=== PATIENT | female | born 1955 | race Caucasian/White ===

== ENCOUNTER → 2017-01-12 | Outpatient (CLI) | payer OTHER ==
[~2017-01-12] MED LIST: CLX20 PO; METO25TA56 PO; SIMV20TA2 PO
--- NOTE | 2017-01-12 11:50 | DIAGNOSTIC IMAGING REPORT ---
LEFT RIBS UNILATERAL WITH PA CHEST CLINICAL HISTORY: CONTUSION OF CHEST WALL, RIB PAIN L trauma. Pain. COMPARISON STUDY: None FINDINGS: Negative left ribs. Negative chest. IMPRESSION: Negative study Electronically signed by: Yuri Schwartz M.D. 01/12/2017 11:49 AM Dictated Date/Time: 01/12/2017 11:47 AM
== END | disposition home or self-care (01) ==
LOC: C.RADPV 11:19
PROVIDERS: ATTEND Nurse Practitioner
DX: S20.219A Contusion of unspecified front wall of thorax, initial encounter (principal); R07.81 Pleurodynia; X58.XXXA Exposure to other specified factors, initial encounter

== ENCOUNTER → 2017-02-20 | Outpatient (CLI) | payer OTHER | END | disposition home or self-care (01) | LOC: C.LABPVFM 10:25 | PROVIDERS: ATTEND Nurse Practitioner | DX: N39.0 Urinary tract infection, site not specified (principal) ==

== ENCOUNTER → 2017-03-10 | Outpatient (CLI) | payer OTHER ==
--- NOTE | 2017-03-10 10:22 | DIAGNOSTIC IMAGING REPORT ---
CHEST 2 VIEWS ROUTINE HISTORY: BLOOD TINGED SPUTUM COMPARISON: Chest and left rib series 01/12/2017. FINDINGS: The lungs are clear. Cardiac silhouette is normal in size. No pleural effusions. No pneumothorax. IMPRESSION: No acute process. Electronically signed by: Nitin Bain M.D. 03/10/2017 10:20 AM Dictated Date/Time: 03/10/2017 10:19 AM
== END | disposition home or self-care (01) ==
LOC: C.RADPV 10:01
PROVIDERS: ATTEND Family Medicine
DX: R04.2 Hemoptysis (principal)

== ENCOUNTER → 2017-03-11 | Outpatient (CLI) | payer OTHER | END | disposition home or self-care (01) | LOC: C.LABPVFM 08:30 | PROVIDERS: ATTEND Family Medicine | DX: R04.2 Hemoptysis (principal) ==

== ENCOUNTER → 2017-08-06 | Outpatient (CLI) | payer OTHER ==
--- NOTE | 2017-08-06 09:32 | DIAGNOSTIC IMAGING REPORT ---
L KNEE 3 VIEWS CLINICAL HISTORY: LEFT KNEE PAIN pain COMPARISON: None. DISCUSSION: Degenerative narrowing medial and to lesser extent lateral joint compartment. Patellofemoral joint is unremarkable. No significant joint effusion. No acute bony abnormality. There is no evidence for soft tissue swelling. IMPRESSION: Moderate degenerative change medial and to a letter lesser extent lateral joint compartment. The above report was generated using voice recognition software. It may contain grammatical, syntax or spelling errors. Electronically signed by: Yuri Schwartz M.D. 08/06/2017 9:30 AM Dictated Date/Time: 08/06/2017 9:30 AM
== END | disposition home or self-care (01) ==
LOC: C.RADPV 08:36
PROVIDERS: ATTEND Nurse Practitioner Family
DX: M25.562 Pain in left knee (principal); M89.8X6 Other specified disorders of bone, lower leg

== ENCOUNTER 2018-03-10 15:02 | Emergency (ER) | payer OTHER ==
[~2018-03-10] VITALS: Ht 162.6 cm; Wt 73.6 kg
[2018-03-10 15:06] VITALS: TEMP 37; Ht 162.6 cm; Wt 73.6 kg
--- NOTE | 2018-03-10 16:07 | DIAGNOSTIC IMAGING REPORT ---
L-SPINE MIN 4 VIEWS ROUTINE CLINICAL HISTORY: Low back pain COMPARISON: None FINDINGS: Alignment of the lumbar spine is anatomic. Vertebral body heights are maintained. No fracture or suspicious lesion is noted. There is marked disc space narrowing with osteophytosis at L5-S1. There is vacuum disc phenomenon at this level. There is moderate disc space narrowing at T10-T11. Note is made of mild to moderate multilevel facet arthrosis. IMPRESSION: 1. No acute lumbar spine fracture or subluxation. 2. Marked disc space narrowing with osteophytosis at L5-S1. 3. Mild to moderate multilevel facet arthrosis. Electronically signed by: Parviz Guzmán M.D. 03/10/2018 4:06 PM Dictated Date/Time: 03/10/2018 4:04 PM
--- NOTE | 2018-03-10 16:10 | EMERGENCY ROOM VISIT NOTE ---
History First contact with patient: 15:17 Chief Complaint: BACK PAIN Stated Complaint: PAIN IN LOWER BACK History of Present Illness The patient is a 62 year old female who presents to the Emergency Room via private vehicle with complaints of "pain in lower back". The patient states that she has low back pain that radiates to her left leg with walking that began last week. It is worse with movement. This morning while making her bed she was bending over and felt pain in the left low back region. She rates as an 8/10 and is worse with walking. At rest it is a 1/10. She took Tylenol at 8 AM. No abdominal complaints, no urinary symptoms, no lower extremity weakness , bowel or bladder incontinence, numbness or tingling in the genital region. No chest pain or shortness of breath. Review of Systems A complete 10-point Review of Systems was discussed with the patient, with pertinent positives and negatives listed in the History of Present Illness. All remaining Review of Systems questions can be considered negative unless otherwise specified. Past Medical/Surgical History Hemorrhoid banding Family History Noncontributory. Social History Smoking Status: Never Smoker Patient lives locally alone. Current/Historical Medications Scheduled Citalopram (Celexa *), 20 MG PO DAILY Methylprednisolone (Medrol Dosepak), 0 PO DAILY Metoprolol Tartrate (Lopressor) (Lopressor), 25 MG PO DAILY Simvastatin (Zocor), 40 MG PO QPM Scheduled PRN Hydrocodone/Acetaminophen 5MG/325MG (Rosebush 5MG/325MG), 1-2 TABLET PO Q6 PRN for Pain Physical Exam Vital Signs Date Time Temp Pulse Resp B/P (MAP) Pulse Ox O2 Delivery O2 Flow Rate FiO2 03/10/18 15:06 37.0 100 16 173/80 98 Room Air Physical Exam VITAL SIGNS - Vital signs and nursing notes were reviewed. Stable. Hypertensive. GENERAL -62-year-old female appearing her stated age who is in no acute distress. Communicates well with provider and answers questions appropriately. SKIN - Without rashes. No meningeal or petechial rash. The skin overlying the left low back is unremarkable. No herpetic lesion. HEAD - NC/AT. EYES - PERRL with EOMI bilaterally. Sclera anicteric. EARS - No deformities of external structures noted on gross examination bilaterally. NOSE - Midline and without cyanosis. No epistaxis or purulent drainage noted. MOUTH/OROPHARYNX - Without perioral cyanosis. NECK - Neck with FROM.No nuchal rigidity. LUNGS - Chest wall symmetric without accessory muscle use, intercostals retractions, or central cyanosis. Normal vesicular breath sounds CTA B/L. No wheezes, rales, or rhonchi appreciated. CARDIAC - RRR with S1/S2. No murmur, rubs, or gallops appreciated. ABDOMEN - Abdominal contour normal without pulsations or visible masses. BS normoactive all four quadrants. No tenderness, palpable masses, hepatosplenomegaly, or ascites noted. EXTREMITIES - No clubbing or peripheral cyanosis. No pretibial edema present. + 5/5 strength noted in UE/LE bilaterally. NEUROLOGIC - Cranial nerves II through XII grossly intact. Sensory intact to light touch throughout. Patellar reflexes +2/4. PSYCH - A&O, and cooperates fully with examiner. Pt is very pleasant and interacts well with examiner. Medical Decision & Procedures ER Provider Diagnostic Interpretation: L-SPINE MIN 4 VIEWS ROUTINE CLINICAL HISTORY: Low back pain COMPARISON: None FINDINGS: Alignment of the lumbar spine is anatomic. Vertebral body heights are maintained. No fracture or suspicious lesion is noted. There is marked disc space narrowing with osteophytosis at L5-S1. There is vacuum disc phenomenon at this level. There is moderate disc space narrowing at T10-T11. Note is made of mild to moderate multilevel facet arthrosis. IMPRESSION: 1. No acute lumbar spine fracture or subluxation. 2. Marked disc space narrowing with osteophytosis at L5-S1. 3. Mild to moderate multilevel facet arthrosis. Electronically signed by: Parviz Guzmán M.D. 03/10/2018 4:06 PM Dictated Date/Time: 03/10/2018 4:04 PM Medical Decision Patient was seen and evaluated as above in room D5. Review was performed of nursing notes and vital signs. After obtaining a thorough history and physical examination the above work up was performed. She has low back pain. No evidence of cauda equina syndrome, fever or emergent process identified on exam. X-ray was obtained. Results as above. Degenerative change. This certainly could explain some of her symptoms today. She appears stable for outpatient management with her family doctor. She will be given a course of steroids, and pain medicine. I refrain from using Flexeril because of her underlying SSRIs. She is to return with worsening. She was educated upon worrisome symptoms which to return. She is to rest. The patient was educated upon management, had questions answered prior to discharge, and was discharged home in good condition. No red flags in the [place] drug monitoring system. In the evaluation and treatment of this patient the following differential diagnoses were entertained: Lumbar strain, sprain, fracture, dislocation, malignancy, urinary etiology, intra-abdominal etiology, among others. Impression Primary Impression: Strain of lumbar region Departure Information Dispostion Home / Self-Care Condition GOOD Prescriptions Hydrocodone/Acetaminophen 5MG/325MG (Rosebush 5MG/325MG) Tab 1-2 TABLET PO Q6 Y for Pain, #15 TAB For Initial Treatment Prov: Javier Rivas PA-C 03/10/18 Methylprednisolone (MEDROL DOSEPAK) 4 Mg Toney 0 PO DAILY, #1 PKT Prov: Javier Rivas PA-C 03/10/18 Referrals Nati Tapia C.R.N.P (PCP) Sal Ramos, DO Patient Instructions [facility] Additional Instructions You have been treated in the Emergency Department for Back Pain. You have been prescribed NORCO to be used for pain control. This is a narcotic medication. You cannot drive or consume alcohol while on this medicine. This medicine should only be used for pain that cannot be controlled with over-the- counter pain medicines. You have been prescribed a Medrol Dosepak. Take this medication as prescribed. You should take the COMPLETE 6-day course of this medication. This is an anti- inflammatory medicine that will help to minimize your symptoms. For pain control, you can use the following [id number] medicines: - Regular strength (325mg/tab) Tylenol (acetaminophen) 2 tabs every 4-6 hours as needed. Do not exceed 12 tablets in a 24 hour period. Avoid taking more than 3 grams (3000 mg) of Tylenol per day. This includes any other sources of acetaminophen you may take on a regular basis. - Regular strength (200 mg/tab) Advil (ibuprofen) 1-2 tabs every 4-6 hours as needed. Do not exceed a dose of 3200 mg per day. If this is an acute injury, ice can be applied to the area of pain for the first 3 days to help decrease pain and inflammation. After the first 3 days, a heating pad can be used over the area for continued soothing relief. You should schedule a follow-up appointment in 2-3 days with your Primary Care Provider for further evaluation and treatment of your back pain. Return to the Emergency Department if your current symptoms worsen despite treatment course outlined above, or if you develop any of the following symptoms : intractable pain despite aforementioned treatment course, loss of control of your bowel or bladder, numbness or tingling in your groin, or development of a fever.
[2018-03-10] MEDS ORDERED: HYDR-5688 PO (16:41)
[2018-03-10] MEDS ORDERED: METH4PAK PO (16:41)
[2018-03-10 16:48] VITALS: BP 168/57; PULSE 92; O2SAT 95
== END 2018-03-10 16:49 | disposition home or self-care (01) ==
LOC: C.EDB 15:03 → C.EDD 16:49
DX: S39.012A Strain of muscle, fascia and tendon of lower back, initial encounter (principal); X58.XXXA Exposure to other specified factors, initial encounter; M85.88 Other specified disorders of bone density and structure, other site; Z79.899 Other long term (current) drug therapy

== ENCOUNTER → 2018-03-18 | Outpatient (CLI) | payer OTHER ==
[~2018-03-18] MED LIST changes: +HYDR-5688 PO; +METH4PAK PO
== END | disposition home or self-care (01) ==
LOC: C.LABPVFM 10:21
PROVIDERS: ATTEND Nurse Practitioner
DX: E78.5 Hyperlipidemia, unspecified (principal)

== ENCOUNTER 2020-03-28 17:37 | Inpatient (IN) ==
[2020-03-28] MEDS ORDERED: SODIUM CHLORIDE 0.9% 500 ML IV STA (18:03)
[2020-03-28] MEDS ORDERED: ONDANSETRON INJ 2 MG/ML 2 ML VIAL IV STA (18:03)
[2020-03-28] MEDS ORDERED: MoRPHine SULFATE 4 MG/ML 1 ML CARP\\VIAL IV STA (18:03)
[2020-03-28] MEDS ORDERED: SODIUM CHLORIDE 0.9% 1000ML 1,000 ML IV STA (18:03)
--- NOTE | 2020-03-28 18:09 | Emergency Department Note ---
History of Present Illness General Chief complaint: Abdominal Pain Stated complaint: SEVERE LOWER STOMACH PAIN Time Seen by Provider: 03/28/20 17:45 History of Present Illness Maximum Pain Intensity: 8 Patient is a 64-year-old female with past medical history significant for dyslipidemia, depression and a history of hypertension who presents the emergency department for evaluation of lower abdominal pain, nausea, diarrhea and bloating x6 days. Patient has a history of diverticulosis diagnosed on colonoscopy. She reports that she was told by her electronic video games servicer to not eat corn. Patient admits that last , 6 days ago she ate a can of corn. Afterwards, she developed lower abdominal discomfort, bloating and a sense that she was constipated. She tried wqnm-wkh-sczlwqa remedies including fiber Gummies, prune juice, MiraLAX and milk of magnesia, she felt better for a short period of time through yesterday, but then her symptoms worsened overnight. She notes increased discomfort that she currently rates an 8/10. She reports bilateral lower abdominal discomfort that is constant and achy in nature. She reports nausea and anorexia without vomiting. She states that she had felt constipated and was having small bowel movements until yesterday when the schools became liquid. No melena or hematochezia. She denies fever, admits to fatigue. She admits to decreased urinary output but denies any urinary symptoms. She states that she feels like she would feel better if she could pass gas. No history of abdominal surgeries. She is postmenopausal. Home Medications Home Medications Medication Instructions Recorded Confirmed Type venlafaxine 75 mg tablet 75 mg PO BID #180 tab 11/04/19 03/28/20 Rx polyethylene glycol 3350 17 g PO DAILY PRN 03/28/20 03/28/20 History simvastatin 40 mg PO QPM 03/28/20 03/28/20 History Allergies Allergy/AdvReac Type Severity Reaction Status Date / Time No Known Allergies Allergy Verified 03/28/20 20:22 Past Med/Surg History Medical History Depression with anxiety (Chronic) Recommend patient receive the Prevnar vaccine today. She will receive the pneumococcal vaccine in 1 year. Discussed the tetanus shot and also the updated shingles vaccine. She will schedule her own mammogram. She will return for pelvic exam. And I will see her in 8 months, she is to continue with her medications for chronic conditions which are otherwise stable at this time Diverticulosis of colon (Chronic) Hx of hemorrhoids Hyperlipidemia Hyperlipidemia (Chronic) Hypertension (Chronic) Insomnia (Chronic) No acute medical problems Surgical History History of hemorrhoidectomy Social History marital status: Single current occupational status: retired Feels Safe at Home: Yes Smoking Status: Never smoker Hx Alcohol Use: No Hx Substance Use: No caffeine: Yes Dental Care, Regularly: Yes Physical Activity Frequency: Daily Seatbelt Use: sometimes Sunscreen Use: Yes Review of Systems A total of 10 systems reviewed and were otherwise negative Physical Exam Vital Signs Vital Signs - 24 hr 03/28/20 17:38 03/28/20 20:10 03/28/20 20:50 Temperature 36.8 C Temperature Source Oral Pulse Rate 116 H Pulse Rate [Apical] 90 85 Respiratory Rate 19 18 18 Blood Pressure 200/73 H Blood Pressure [Left Arm] 205/77 H 158/67 H Blood Pressure Mean 115 Blood Pressure Mean [Left Arm] 119 97 Pulse Oximetry 92 99 98 Oxygen Delivery Method Room Air Room Air Sepsis Recent Fever Within 48 Hours No Sepsis Action Taken by Nursing No Action Required 03/28/20 21:16 Temperature Temperature Source Pulse Rate Pulse Rate [Apical] 80 Respiratory Rate 18 Blood Pressure Blood Pressure [Left Arm] 125/90 Blood Pressure Mean Blood Pressure Mean [Left Arm] 101 Pulse Oximetry 98 Oxygen Delivery Method Sepsis Recent Fever Within 48 Hours Sepsis Action Taken by Nursing CONSTITUTIONAL: Patient is an uncomfortable although nontoxic appearing 64-year-old female who is awake and alert and in no acute distress. EYES: Pupils equal, round, reactive to light and accommodation. EOMs intact without nystagmus. Sclera are anicteric. ENT: Tympanic membranes intact, with normal landmarks. External canals are clear. Oral and nasopharynx are clear. Mucous membranes are moist, no lesions, tongue and gums appear normal. CARDIOVASCULAR: Regular rate and rhythm, with normal S1 and S2, no murmur or gallop or rub is heard. No carotid bruits auscultated. No JVD. Peripheral pulses easily palpable. RESPIRATORY: Breath sounds equal and clear to auscultation without wheezes, rales, or rhonchi heard. Full and equal chest expansion without accessory muscle use or retractions. ABDOMEN: Bowel sounds are hypoactive throughout. Abdomen is soft, mildly distended in the lower quadrants, and tender to percussion in the left lower quadrant. She is tender to palpation in the left and right lower quadrants without guarding, rebound or rigidity. INTEGUMENTARY: No lesions or rash, normal skin turgor. LYMPH: No lymphadenopathy. Course Course The patient was seen and assessed as above. Old records are reviewed. She presents to the emergency department for evaluation of lower abdominal discomfort, bloating and diarrhea with a known history of diverticulosis. IV lock was initiated and laboratory studies were collected. She was hydrated with a liter bolus of normal saline solution over 1 hour then 250 cc/h. She was med icated with morphine 4 mg and Zofran 4 mg IV for pain and nausea. CBC with differential, CMP and urinalysis were ordered. CT scan of the abdomen and pelvis with IV contrast was obtained. Laboratory studies noted a normal white count at 10,600, left shift and bandemia noted. No anemia. Electrolytes are within normal limits. Renal functions are normal. Transaminases are not elevated. Urine microscopy notes 2+ ketones, 2+ blood and 10-20 epithelial cells, no other indicators for infection. Patient was reassessed after pain and nausea medication, and reported that she felt improved, she rated her discomfort a 2/10. She was taken to CT. CT scan of the abdomen pelvis with IV contrast notes acute sigmoid diverticulitis with an equivocal intramural abscess, no drainable fluid collection, with a second focus of acute diverticulitis involving the mid descending colon. No evidence for obstruction or free air. CT scan findings were reviewed with the patient. She was ordered Zosyn IV. All laboratory and diagnostic imaging studies were reviewed with her, and discussed with attending physician. Given the severity of the findings on CT scan, admission/observation was discussed with her and she was agreeable. Consultation was placed with the [facility] for further care and management as an inpatient. Administered Medications Ioversol (Optiray 320 100ml) 94 ml IV ONCE PRN PRN Reason: Interaction Checking Stop: 04/01/20 19:13 Last Admin: 03/28/20 19:14 Dose: 94 ml Documented by: [id number] Discontinued Medications Sodium Chloride (Nss 1000ml) 1,000 mls @ 999 mls/hr IV .Q1H1M STA Stop: 03/28/20 19:03 Last Infusion: 03/28/20 20:12 Dose: 0 mls/hr Documented by: [id number] Admin: 03/28/20 18:19 Dose: 999 mls/hr Documented by: [id number] Sodium Chloride (Nss) 500 mls @ 250 mls/hr IV .Q2H STA Stop: 03/28/20 20:02 Last Infusion: 03/28/20 20:12 Dose: 0 mls/hr Documented by: [id number] Admin: 03/28/20 18:20 Dose: 250 mls/hr Documented by: [id number] Piperacillin Sod/Tazobactam Sod (Zosyn) 4.5 gm in 120 mls @ 240 mls/hr IV NOW ONE Stop: 03/28/20 20:23 Last Infusion: 03/28/20 21:02 Dose: 0 mls/hr Documented by: [id number] Admin: 03/28/20 20:09 Dose: 240 mls/hr Documented by: [id number] Morphine Sulfate (Morphine Sulfate) 4 mg IV NOW STA Stop: 03/28/20 18:04 Last Admin: 03/28/20 18:20 Dose: 4 mg Documented by: [id number] Ondansetron HCl (Zofran) 4 mg IV NOW STA Stop: 03/28/20 18:04 Last Admin: 03/28/20 18:20 Dose: 4 mg Documented by: [id number] Medical Decision Making Differential Diagnosis Differential diagnoses entertained included UTI, pyelonephritis, renal colic, bowel obstruction, perforation, abscess, acute diverticulitis, mass or malignancy, acute appendicitis, infectious versus inflammatory colitis/enteritis, foodborne illness, among others. Medical Records Attestation: I reviewed the patient's medical records. Home Medications Current Medication List: was personally reviewed by me Laboratory Data Attestation: I reviewed the patient's lab results. Result diagrams: 03/28/20 18:28 03/28/20 18:28 Lab Results 03/28/20 03/28/20 03/28/20 Range/Units 18:28 18:28 18:28 WBC 10.65 (4.8-10.8) K/uL RBC 4.67 (4.2-5.4) M/uL Hgb 13.6 (12.0-16.0) g/dL Hct 40.9 (37-47) % MCV 87.6 (80-100) fL MCH 29.1 (25-34) pg MCHC 33.3 (32-36) g/dL RDW Std Deviation 41.7 (36.4-46.3) fL RDW Coeff of Vishnu 13.0 (11.5-14.5) % Plt Count 325 (130-400) K/uL MPV 10.3 (7.4-10.4) fL Immature Gran % (Auto) 0.3 % Neut % (Auto) 75.7 % Lymph % (Auto) 17.0 % Clayton % (Auto) 6.7 % Eos % (Auto) 0.1 % Baso % (Auto) 0.2 % Immature Gran # (Auto) 0.03 H (0.00-0.02) K/uL Neut # (Auto) 8.07 H (1.4-6.5) K/uL Lymph # (Auto) 1.81 (1.2-3.4) K/uL Clayton # (Auto) 0.71 H (0.11-0.59) K/uL Eos # (Auto) 0.01 (0-0.5) K/uL Baso # (Auto) 0.02 (0-0.2) K/uL Sodium 138 (136-145) mmol/L Potassium 3.7 (3.5-5.1) mmol/L Chloride 104 (98-107) mmol/L Carbon Dioxide 26 (21-32) mmol/L Anion Gap 8.0 (3-11) BUN 9 (7-18) mg/dl Creatinine 0.77 (0.6-1.2) mg/dl Est Cr Clr Drug Dosing 69.9 ml/min Est GFR ( Amer) 93.9 Est GFR (Non-Af Amer) 81.0 BUN/Creatinine Ratio 12.2 (10-20) Glucose 109 H (70-99) mg/dl Calcium 9.2 (8.5-10.1) mg/dl Total Bilirubin 0.8 (0.2-1) mg/dl AST 15 (15-37) U/L ALT 21 (12-78) U/L Alkaline Phosphatase 97 (45-117) U/L Total Protein 8.0 (6.4-8.2) gm/dl Albumin 3.6 (3.4-5.0) gm/dl Globulin 4.4 H (2.5-4.0) gm/dl Albumin/Globulin Ratio 0.8 L (0.9-2) Urine Color Yellow Urine Appearance Clear (Clear) Urine pH 5.5 (4.5-7.5) Ur Specific Dania 1.027 (1.000-1.030) Urine Protein Negative (Negative) Urine Glucose (UA) Negative (Negative) Urine Ketones 2+ H (Negative) Urine Blood 2+ H (Negative) Urine Nitrite Negative (Negative) Urine Bilirubin Negative (Negative) Urine Urobilinogen Negative (Negative) Ur Leukocyte Esterase Negative (Negative) Urine WBC (Auto) 1-5 (0-5) /hpf Urine RBC (Auto) 5-10 H (0-4) /hpf U Hyaline Cast (Auto) 1-5 (0-5) /lpf U Epithel Cells (Auto) 10-20 H (0-5) /lpf Urine Bacteria (Auto) Negative (Negative) Imaging Data Attestation: I personally reviewed and interpreted this imaging study as follows: Radiologist's Impression: CT abd pelvis IV con only CLINICAL HISTORY: LOWER ABD PAIN, BLOATING,DIARRHEA X 6 DAYS COMPARISON STUDY: January 06, 2019 TECHNIQUE: The patient was scanned in a dynamic helical fashion during intravenous administration of 94 cc of Optiray 320 A dose lowering technique was utilized adhering to the principles of ALARA. CT DOSE: 393.80 mGy.cm FINDINGS: Lower chest: There is a small to moderate hiatal hernia. Liver: The contrast-enhanced liver is normal in size, contour, and attenuation. There is no intrahepatic biliary ductal dilatation. The hepatic veins and portal veins are patent. Gallbladder: Unremarkable. Spleen: Normal in size and attenuation. Pancreas: Unremarkable. Adrenal glands: Unremarkable. Kidneys: There is a 1 cm left renal cortical cyst. There is no hydronephrosis. Bowel: There are no transition zones to indicate bowel obstruction. There is extensive colonic diverticulosis. There is colonic wall thickening and peridiverticular stranding within the sigmoid indicative of acute diverticulitis. There is a second area of peridiverticular inflammation involving the mid descending colon. There is an equivocal intramural abscess w ithin the sigmoid colon. There is no evidence of acute appendicitis. Peritoneum: There is no intraperitoneal free air or abdominal ascites. Vasculature: The abdominal aorta is normal in course and caliber. Adenopathy: None. Pelvic viscera: The bladder, and pelvic viscera are unremarkable. Skeletal structures: No destructive osseous lesions are seen. IMPRESSION: 1. Acute sigmoid diverticulitis with an equivocal intramural abscess. There are no drainable fluid collections. 2. There is an additional focus of acute diverticulitis involving the mid descending colon. 3. No evidence of bowel obstruction. No evidence of free air 4. Hiatal hernia Blood Pressure Blood Pressure Findings: Elevated blood pressure Blood Pressure Disposition: further management by hospitalist MDM Narrative See ED Course. Impression & Plan Acute diverticulitis Discharge Plan Visit Data Chief Complaint: Abdominal Pain Stated Complaint: SEVERE LOWER STOMACH PAIN ED Provider: Walt Pettit ED Midlevel Provider: Viraj Paez Discharge Problem: Acute diverticulitis Patient Disposition: Being Evaluated by Hospitalist Forms Stand Alone Forms: [facility] [employer] Prescriptions Prescriptions: No Action venlafaxine 75 mg tablet 75 mg PO BID Qty: 180 RF: 3 simvastatin 40 mg tablet 40 mg PO QPM RF: 0 polyethylene glycol 3350 17 gram/dose Powder 17 g PO DAILY PRN (Reason: Constipation) RF: 0 Referrals Referrals: Nati Tapia CRNP [Primary Care Provider] -
[2020-03-28 18:35] LABS: Basophils # (auto) 0.02 K/uL (0-0.2); Basophils % (auto) 0.2 %; Eosinophils # (auto) 0.01 K/uL (0-0.5); Eosinophils % (auto) 0.1 %; Hematocrit (blood only) 40.9 % (37-47); Hemoglobin 13.6 g/dL (12.0-16.0); Immature Granulocytes # (auto) 0.03 K/uL (0.00-0.02); Immature Granulocytes % (auto) 0.3 %; Lymphocytes # (auto) 1.81 K/uL (1.2-3.4); Mean Corpuscular Hemoglobin 29.1 pg (25-34); Mean Corpuscular Hgb Conc 33.3 g/dL (32-36); Mean Corpuscular Volume 87.6 fL (80-100); Mean Platelet Volume 10.3 fL (7.4-10.4); Monocytes # (auto) 0.71 K/uL (0.11-0.59); Monocytes % (auto) 6.7 %; Neutrophils # (auto) 8.07 K/uL (1.4-6.5); Neutrophils % (auto) 75.7 %; Platelet Count 325 K/uL (130-400); RDW Standard Deviation 41.7 fL (36.4-46.3); Red Blood Count 4.67 M/uL (4.2-5.4); White Blood Count 10.65 K/uL (4.8-10.8)
[2020-03-28 18:40] LABS: Appearance Urine Clear (Clear); Bacteria Urine Automated Negative (Negative); Bilirubin Urine Negative (Negative); Blood Urine 2+ (Negative); Color Urine Yellow; Glucose Urine UA Negative (Negative); Ketones Urine 2+ (Negative); Leukocyte Esterase Urine Negative (Negative); Nitrite Urine Negative (Negative); Protein Urine Negative (Negative); Specific Gravity Urine 1.027 (1.000-1.030); Urobilinogen Urine Negative (Negative); pH Urine 5.5 (4.5-7.5)
[2020-03-28 18:53] LABS: Albumin Level 3.6 gm/dl (3.4-5.0); BUN Creatinine Ratio 12.2 (10-20); Calcium 9.2 mg/dl (8.5-10.1); Creatinine Clr Calc Pharmacy 69.9 ml/min; Est GFR (African American) 93.9; Potassium 3.7 mmol/L (3.5-5.1)
[2020-03-28 18:56] LABS: Albumin Globulin Ratio 0.8 (0.9-2); Bilirubin,Total 0.8 mg/dl (0.2-1); Globulin 4.4 gm/dl (2.5-4.0)
[2020-03-28] MEDS ORDERED: IOVERSOL 100ml IV PRN (19:14)
--- NOTE | 2020-03-28 19:30 | CT Scan Report ---
CT abd pelvis IV con only CLINICAL HISTORY: LOWER ABD PAIN, BLOATING,DIARRHEA X 6 DAYS COMPARISON STUDY: January 06, 2019 TECHNIQUE: The patient was scanned in a dynamic helical fashion during intravenous administration of 94 cc of Optiray 320 A dose lowering technique was utilized adhering to the principles of ALARA. CT DOSE: 393.80 mGy.cm FINDINGS: Lower chest: There is a small to moderate hiatal hernia. Liver: The contrast-enhanced liver is normal in size, contour, and attenuation. There is no intrahepa tic biliary ductal dilatation. The hepatic veins and portal veins are patent. Gallbladder: Unremarkable. Spleen: Normal in size and attenuation. Pancreas: Unremarkable. Adrenal glands: Unremarkable. Kidneys: There is a 1 cm left renal cortical cyst. There is no hydronephrosis. Bowel: There are no transition zones to indicate bowel obstruction. There is extensive colonic divert iculosis. There is colonic wall thickening and peridiverticular stranding within the sigmoid indicati ve of acute diverticulitis. There is a second area of peridiverticular inflammation involving the mid descending colon. There is an equivocal intramural abscess within the sigmoid colon. There is no olga dence of acute appendicitis. Peritoneum: There is no intraperitoneal free air or abdominal ascites. Vasculature: The abdominal aorta is normal in course and caliber. Adenopathy: None. Pelvic viscera: The bladder, and pelvic viscera are unremarkable. Skeletal structures: No destructive osseous lesions are seen. IMPRESSION: 1. Acute sigmoid diverticulitis with an equivocal intramural abscess. There are no drainable fluid co llections. 2. There is an additional focus of acute diverticulitis involving the mid descending colon. 3. No evidence of bowel obstruction. No evidence of free air 4. Hiatal hernia ACT 112: Negative or not required by law. Electronically signed by: Evelio Glynn M.D. 03/28/2020 7:29 PM
[2020-03-28] MEDS ORDERED: PIPERACILL/TAZOBAC CONSULT ACTIVE PRN (19:54)
[2020-03-28] MEDS ORDERED: PIPERACILLIN/TAZOBACTAM 4.5 GM/120 ML BAG IV ONE (19:54)
--- NOTE | 2020-03-28 20:17 | Emergency Department Note ---
ED Visit Note Patient was seen by our PA/[employer]. I was involved in the patient's care and did evaluate the patient myself. I was involved in the care throughout the ER stay. Patient presents with abdominal pain. Her laboratory work-up is reassuring. CT scan does show diverticulitis with a potential intramural abscess. No drainable collection was seen though. No bowel obstruction. Given the findings on CT, given the patient's level of pain, a hospital stay for IV antibiotic therapy was felt warranted. .
[2020-03-28] MEDS ORDERED: POLYETHYLENE (MIRALAX) 17 GM PACK PO PRN (21:50)
--- NOTE | 2020-03-28 22:04 | History & Physical Report ---
Date of Service March 28, 2020 Assessment & Plan (1) Acute diverticulitis: 64-year-old female with a past medical history of hypertension, hyperlipidemia, depression with anxiety, diverticulosis admitted to the hospital for acute diverticulitis flare. 1. Acute diverticulitis Started on ciprofloxacin and metronidazole for empiric coverage of diverticulitis. She received 1 dose of Zosyn in the ED. CT abdomen and pelvis showed acute diverticulitis with intramural abscess of the sigmoid colon without drainable fluid collection, as well as acute diverticulitis of the descending colon. CBC showed a normal white blood cell count with an elevated neutrophilic pre dominance. Patient has been afebrile thus far we will continue to monitor vitals for worsening clinical picture. Patient will require repeat outpatient colonoscopy 4 to 6 weeks after resolution of acute diverticulitis flare IV Zofran ordered for nausea n.p.o. at midnight Stool white blood cells and culture sent to rule out additional acute intra- abdominal infection. 2. Depression with anxiety Venlafaxine dose continued from home medication list 3. Hyperlipidemia Simvastatin continued from home medication list DVT ppx: not indicated FEN/GI: NPO, IV NS @ 110 ml/hr Code status: full code Dispo: Med/surg (2) Hyperlipidemia: (3) Hypertension: (4) Depression with anxiety: History of Present Illness 64-year-old female with a history of diverticulosis presenting to the emergency department with 6 days of acute lower abdominal pain, nausea, loss of appetite. She notes that her email manager told her to avoid foods like corn however 6 days ago she baked a can of corn and proceeded to consume it with dinner. Since that day she has been fairly constipated and experiencing this abdominal pain. She says she has been able to have mostly liquid bowel movements, denies any presence of bright red blood with the bowel movement. Denies any fevers but has had some chills in the past few days. Denies any night sweats, episodes of emesis or sick contacts. Primary Care Provider: DEYANIRA Canseco Allergies Allergy/AdvReac Type Severity Reaction Status Date / Time No Known Allergies Allergy Verified 03/28/20 20:22 Home Medications Home Medications Medication Instructions Recorded Confirmed Type venlafaxine 75 mg tablet 75 mg PO BID #180 tab 11/04/19 03/28/20 Rx polyethylene glycol 3350 17 g PO DAILY PRN 03/28/20 03/28/20 History simvastatin 40 mg PO QPM 03/28/20 03/28/20 History ciprofloxacin HCl 500 mg PO BID #20 tab 03/30/20 Rx metronidazole 500 mg PO Q8H #30 tab 03/30/20 Rx Past Med/Surg History Medical History Depression with anxiety (Chronic) Recommend patient receive the Prevnar vaccine today. She will receive the pneumococcal vaccine in 1 year. Discussed the tetanus shot and also the updated shingles vaccine. She will schedule her own mammogram. She will return for pelvic exam. And I will see her in 8 months, she is to continue with her medications for chronic conditions which are otherwise stable at this time Diverticulosis of colon (Chronic) Hx of hemorrhoids Hyperlipidemia Hyperlipidemia (Chronic) Hypertension (Chronic) Insomnia (Chronic) No acute medical problems Surgical History History of hemorrhoidectomy Social History Preferred Language: Pakistani Communication Ability: Effective Beliefs That Will Affect Care: None marital status: Single Current Living Situation: Alone current occupational status: retired Feels Safe at Home: Yes Smoking Status: Never smoker Hx Alcohol Use: No Hx Substance Use: No caffeine: Yes Dental Care, Regularly: Yes Physical Activity Frequency: Daily Seatbelt Use: sometimes Sunscreen Use: Yes Review of Systems Constitutional: + chills and + anorexia; no fever, no sweats and no body aches Respiratory: no cough, no dyspnea and no hemoptysis Cardiovascular: no chest pain, no dyspnea on exertion, no palpitations and no edema Gastrointestinal: + abdominal pain, + early satiety, + nausea, + constipation and + diarrhea/loose stools; no vomiting and no blood in stools Genitourinary: no dysuria Physical Exam Constitutional: WD/WN, vitals as above Neck: trachea midline, no thyromegaly Respiratory: normal respiratory effort, lungs clear to auscultation Cardiovascular: RRR, no murmur, no edema Gastrointestinal (Abdomen): Inspection/Auscultation: abdomen normal to inspection and normal bowel sounds; abdomen not distended Percussion/Palpation: + abdomen tender (LLQ); no guarding and abdomen not rigid Results & Data Results & Data ([place]) Vital Signs (Past 12 Hours) Vital Signs Temp Pulse Pulse Resp BP BP Pulse Ox 03/28/20 21:16 80 18 125/90 98 03/28/20 20:50 85 18 158/67 H 98 03/28/20 20:10 90 18 205/77 H 99 03/28/20 17:38 36.8 C 116 H 19 200/73 H 92 Laboratory Results WBC 10.65 K/uL (4.8-10.8) 03/28/20 18: RBC 4.67 M/uL (4.2-5.4) 03/28/20 18: Hgb 13.6 g/dL (12.0-16.0) 03/28/20 18: Hct 40.9 % (37-47) 03/28/20 18: MCV 87.6 fL (80-100) 03/28/20 18: MCH 29.1 pg (25-34) 03/28/20 18: MCHC 33.3 g/dL (32-36) 03/28/20 18: RDW Std Deviation 41.7 fL (36.4-46.3) 03/28/20 18: RDW Coeff of Vishnu 13.0 % (11.5-14.5) 03/28/20 18: Plt Count 325 K/uL (130-400) 03/28/20 18:28 MPV 10.3 fL (7.4-10.4) 03/28/20 18:28 Immature Gran % (Auto) 0.3 % 03/28/20 18: Neut % (Auto) 75.7 % 03/28/20 18:28 Lymph % (Auto) 17.0 % 03/28/20 18:28 Summers % (Auto) 6.7 % 03/28/20 18:28 Eos % (Auto) 0.1 % 03/28/20 18: Baso % (Auto) 0.2 % 03/28/20 18: Immature Gran # (Auto) 0.03 K/uL (0.00-0.02) H 03/28/20 18:28 Neut # (Auto) 8.07 K/uL (1.4-6.5) H 03/28/20 18:28 Lymph # (Auto) 1.81 K/uL (1.2-3.4) 03/28/20 18:28 Summers # (Auto) 0.71 K/uL (0.11-0.59) H 03/28/20 18:28 Eos # (Auto) 0.01 K/uL (0-0.5) 03/28/20 18:28 Baso # (Auto) 0.02 K/uL (0-0.2) 03/28/20 18: Sodium 138 mmol/L (136-145) 03/28/20 18: Potassium 3.7 mmol/L (3.5-5.1) 03/28/20: Chloride 104 mmol/L (98-107) 03/28/20: Carbon Dioxide 26 mmol/L (21-32) 03/28/20 18: Anion Gap 8.0 (3-11) 03/28/20 18: BUN 9 mg/dl (7-18) 03/28/20: Creatinine 0.77 mg/dl (0.6-1.2) 03/28/20 18: Est Cr Clr Drug Dosing 69.9 ml/min 03/28/20 18: Est GFR ( Amer) 93.9 03/28/20 18: Est GFR (Non-Af Amer) 81.0 03/28/20 18: BUN/Creatinine Ratio 12.2 (10-20) 03/28/20 18: Glucose 109 mg/dl (70-99) H 03/28/20 18: Calcium 9.2 mg/dl (8.5-10.1) 03/28/20 18: Total Bilirubin 0.8 mg/dl (0.2-1) 03/28/20 18: AST 15 U/L (15-37) 03/28/20 18: ALT 21 U/L (12-78) 03/28/20 18: Alkaline Phosphatase 97 U/L (45-117) 03/28/20 18: Total Protein 8.0 gm/dl (6.4-8.2) 03/28/20 18: Albumin 3.6 gm/dl (3.4-5.0) 03/28/20 18:28 Globulin 4.4 gm/dl (2.5-4.0) H 03/28/20 18:28 Albumin/Globulin Ratio 0.8 (0.9-2) L 03/28/20 18: Urine Color Yellow 03/28/20 18:28 Urine Appearance Clear (Clear) 03/28/20 18:28 Urine pH 5.5 (4.5-7.5) 03/28/20 18: Ur Specific Cunningham 1.027 (1.000-1.030) 03/28/20 18:28 Urine Protein Negative (Negative) 03/28/20 18: Urine Glucose (UA) Negative (Negative) 03/28/20 18: Urine Ketones 2+ (Negative) H 03/28/20 18: Urine Blood 2+ (Negative) H 03/28/20 18: Urine Nitrite Negative (Negative) 03/28/20 18: Urine Bilirubin Negative (Negative) 03/28/20 18: Urine Urobilinogen Negative (Negative) 03/28/20 18: Ur Leukocyte Esterase Negative (Negative) 03/28/20 18:28 Urine WBC (Auto) 1-5 /hpf (0-5) 03/28/20 18: Urine RBC (Auto) 5-10 /hpf (0-4) H 03/28/20 18: U Hyaline Cast (Auto) 1-5 /lpf (0-5) 03/28/20 18:28 U Epithel Cells (Auto) 10-20 /lpf (0-5) H 03/28/20 18:28 Urine Bacteria (Auto) Negative (Negative) 03/28/20 18:28 CT Abd/Pelv: 1. Acute sigmoid diverticulitis with an equivocal intramural abscess. There are no drainable fluid collections. 2. There is an additional focus of acute diverticulitis involving the mid descending colon. 3. No evidence of bowel obstruction. No evidence of free air 4. Hiatal hernia Supervising Physician Co-Signing Physician Notes Attending addendum: I have physically seen this patient, have supervised the medical residents activities, and agree with the H&P unless as otherwise noted. Assessment and Plan: Acute sigmoid diverticulitis/intramural abscess/mid descending colon diverticulitis- Order stool studies. NPO Zofran 4 mg IV every 6 hours as needed. Received Zosyn 4.5 g IV x1 in ED. Starting Cipro 400 mg IV every 12 hours and metronidazole 500 mg IV every 8 hours Famotidine 20 mg IV every 12 hours IV fluids, NS at 110 mL's per hour. Follow blood cultures. Remaining orders and notations as noted. Resident Activity Tracking Resident Involvement: Resident Care Provided Care Provided: Adult Hospital Medicine
[2020-03-28] MEDS: SODIUM CHLORIDE 0.9% 1000ML 1,000 ML IV SCH (23:31)
[2020-03-28] MEDS: CIPROFLOXACIN / D5W 400 MG/200 ML BAG IV SCH (23:31)
[2020-03-28] MEDS: metroNIDAZOLE 500 MG/100 ML BAG IV SCH (23:32)
[2020-03-29] MEDS ORDERED: KETOROLAC TROMETHAMINE 15 MG/ML VIAL IV ONE (04:22)
[2020-03-29] MEDS ORDERED: KETOROLAC TROMETHAMINE 15 MG/ML VIAL IV PRN (04:22)
[2020-03-29] MEDS: metroNIDAZOLE 500 MG/100 ML BAG IV SCH ×3 (06:32→22:21)
[2020-03-29] MEDS ORDERED: MoRPHine SULFATE 2 MG/ML CARP IV PRN (07:25)
[2020-03-29] MEDS: VENLAFAXINE HCL 37.5 MG TAB PO SCH ×2 (07:35→20:15)
[2020-03-29] MEDS: SODIUM CHLORIDE 0.9% 1000ML 1,000 ML IV SCH ×2 (07:36→20:17)
[2020-03-29] MEDS: CIPROFLOXACIN / D5W 400 MG/200 ML BAG IV SCH ×2 (10:58→23:31)
--- NOTE | 2020-03-29 15:36 | Hospitalist Progress Note ---
Date of Service March 29, 2020 Assessment & Plan (1) Acute diverticulitis: Given concern for intramural abscess and extensive area of involvement will continue on IV ciprofloxacin and metronidazole overnight despite no current abdominal pain and tolerating clear liquids fine. Advance diet to full liquids for breakfast as long as she is not having abdominal pain. Need for follow up colonoscopy in 4-6 weeks discussed with the patient Planned discharge tomorrow. (2) Hyperlipidemia: Continue simvastatin (3) Depression with anxiety: Continue venlafaxine. Appears stable (4) Microscopic hematuria: Noted incidentally on UA. Recommend repeating as outpatient in 4-6 weeks to check for resolution (5) Constipation: Suspect her feeling of this is more the diverticultitis. She has little stool in her colon on CT. Do not recommend laxatives. Admission and Anticipated Discharge Date Admission Date: March 28, 2020 Anticipated date of discharge: 03/29/20 Subjective Patient without pain, nausea or vomiting. Feels she is constipated. No fevers or chills. Review of Systems Review of Systems: All systems reviewed & are unremarkable except as noted in HPI & below Physical Exam Constitutional: WD/WN, vitals as above Eyes: + anicteric sclerae; normal pupil size Neck: trachea midline, no thyromegaly Respiratory: normal respiratory effort Cardiovascular: Rate/Rhythm: regular rate and regular rhythm Gastrointestinal (Abdomen): Inspection/Auscultation: abdomen normal to inspection and normal bowel sounds; abdomen not distended Percussion/Palpation: abdomen soft; abdomen nontender, no guarding and abdomen not rigid Musculoskeletal: no cyanosis or clubbing, extremities motor strength 5/5 Skin: no rashes, warm and dry Neurologic: moves all extremities and awake Psychiatric: A+Ox3, euthymic affect Results & Data Results & Data ([facility]) Vital Signs (Past 12 Hours) Vital Signs Temp Pulse Resp BP Pulse Ox 03/29/20 15:22 36.7 C 88 18 167/78 H 96 03/29/20 07:28 37.1 C 91 H 16 129/71 97 PG Care Time/CCT Total # of Minutes Spent Total Time Spent with Patient: Total time spent is greater than 50% in coordination of care (as documented) at patient's floor/unit and/or counseling patient: Coding Level of Care Code 20578 Subseq Hosp Care Lvl 2 Diagnoses Acute diverticulitis K57.92 Hyperlipidemia E78.5 Depression with anxiety F41.8 Microscopic hematuria R31.29 Constipation K59.00
[2020-03-29] MEDS ORDERED: Nursing to Pharmacy Communication ONE (17:53)
[2020-03-29] MEDS: ONDANSETRON INJ 2 MG/ML 2 ML VIAL IV PRN (20:33)
[2020-03-29] MEDS ORDERED: SIMVASTATIN 40 MG TAB PO SCH (21:00)
[2020-03-30] MEDS: SODIUM CHLORIDE 0.9% 1000ML 1,000 ML IV SCH (05:22)
[2020-03-30] MEDS: metroNIDAZOLE 500 MG/100 ML BAG IV SCH ×2 (05:26→14:22)
[2020-03-30] MEDS: VENLAFAXINE HCL 37.5 MG TAB PO SCH (08:15)
[2020-03-30] MEDS: CIPROFLOXACIN / D5W 400 MG/200 ML BAG IV SCH (10:59)
[2020-03-30] MEDS: ONDANSETRON INJ 2 MG/ML 2 ML VIAL IV PRN (14:22)
--- NOTE | 2020-03-30 14:38 | Discharge Summary ---
Date of Service March 30, 2020 Principal Diagnosis Acute diverticulitis with possible abscess forming Discharge Exam Constitutional WD/WN, vitals as above Eyes EOM intact bilaterally; no conjunctival abnormality ENMT external ear and nose normal, oropharynx normal Neck trachea midline, no thyromegaly normal visual inspection Respiratory normal respiratory effort, lungs clear to auscultation no respiratory distress Cardiovascular RRR, no murmur, no edema Gastrointestinal (Abdomen) Inspection/Auscultation: abdomen normal to inspection; abdomen not distended Musculoskeletal no cyanosis or clubbing, extremities motor strength 5/5 Skin no rashes, warm and dry Neurologic moves all extremities and awake Psychiatric Orientation: alert, oriented to person and cooperative Discharge Data Allergies Allergy/AdvReac Type Severity Reaction Status Date / Time No Known Allergies Allergy Verified 03/28/20 20:22 Consultations 03/28/20 20:00 ED Decision to Admit Stat Ordered Studies 03/28/20 18:04 CT abd pelvis IV con only Stat Hospital Course (1) Acute diverticulitis: No current abdominal pain and tolerating normal diet. Had a BM. - The CT a/p on 03/28 showed equivocal intramural abscess. - Discharged on Cipro/Flagyl x 10 more days. A bit of a longer course due to the possible abscess. - Will need a repeat CT a/p with IV contrast in 1 week to ensure resolution. Message sent to PCP to this effect. - Need for follow up colonoscopy in 4-6 weeks discussed with the patient. (2) Hypertension: BP elevated in the hospital (as high as 190/70) in the setting of stress/anxiety. Asymptomatic. - Normally, her BP runs ~140/80 at home per patient. Will defer any HTN agent to PCP as I think her BP will return to normal after getting home. (3) Hyperlipidemia: Continue simvastatin (4) Depression with anxiety: Continue venlafaxine. Anxious inpatient, but nothing out of expected levels. (5) Microscopic hematuria: Noted incidentally on UA. Recommend repeating as outpatient in 4-6 weeks to check for resolution. (6) Constipation: Discussed Miralax and FiberCon as OTC options. Total Time Total Time Spent Total Time Spent (In Minutes): 35 Discharge Plan Discharge Items Patient Disposition: Home - Self-Care Reason For Visit: DIVERTICULITIS,INTRAMURAL ABSCESS Discharge Diagnosis: Diverticulitis Activity: Resume your previous activity Non-emergency contact: Primary Care Provider Call non-emergency contact if: your symptoms worsen, your pain is not controlled, your pain is worsening and your temperature is above 101 Follow-up/Referrals: Nati Tapia CRNP [Primary Care Provider] - Diet: Regular Addtl Attending Provider Instructions: You were admitted with diverticulitis which is an infection in the lining of the large intestine. We gave you antibiotics, and you better within a day. We are discharging you on 10 more days of antibiotics. Please take the ciprofloxacin 2 times per day (morning and night) and the metronidazole three times per day (morning, lunch, and dinner/evening). Please see Ms. Tapia in the office or on a tele-visit next week. Your infection was a little further advanced and a *possible* small abscess had formed. I would like you to get a repeat CT scan in 1 week to make sure the area is responding to the antibiotics, and no abscess has formed. Ms. Tapia will be able to order this for you when you see her in the office. Otherwise, as we discussed, you can take Miralax (usually with a purple label and purple cap) daily to help with your constipation. Take 1/2 cap full every evening. As we discussed, you can mix it with hot tea which helps it dissolve and should not be a bother to take. If you do not have a bowel movement that day or it is hard/painful, please take a whole capful. You can not really "overdose" on Miralax other than taking enough to cause diarrhea. If this occurs, skip that day's dose and return to only taking half a capful the next day. You can also take "Fiber-Con" chews which are softer and taste good and are more palatable than Metamucil. Pending Studies at Discharge: No Stand-Alone Forms: My [employer], Smoking Cessation Medications and DC Order Prescriptions: New ciprofloxacin HCl 500 mg tablet 500 mg PO BID Qty: 20 RF: 0 metronidazole 500 mg tablet 500 mg PO Q8H Qty: 30 RF: 0 Continued venlafaxine 75 mg tablet 75 mg PO BID Qty: 180 RF: 3 simvastatin 40 mg tablet 40 mg PO QPM RF: 0 polyethylene glycol 3350 17 gram/dose Powder 17 g PO DAILY PRN (Reason: Constipation) RF: 0 Discharge Orders: Discharge Order (Routine); Ordered 05/15/20 Ordered By: Kaden Gupta/Other Patient Handouts: Diverticulosis Diverticulitis Admission Data Admit Date/Time: 03/28/20 21:48 Attending Provider: Kaden Rehman Admit Provider: Ellie Jackman Primary Care Provider: Nati Tapia Other Providers: Kaden Rehman Coding Level of Care Code D/C Day Management >30 mins Diagnoses Acute diverticulitis K57.92 Hypertension I10 Hyperlipidemia E78.5 Depression with anxiety F41.8 Microscopic hematuria R31.29 Constipation K59.00
--- NOTE | 2020-03-30 23:20 | Billing Data ---
Date of Service March 30, 2020 Coding Level of Care Code 88491 Initial Inpt Care Lvl 2
== END 2020-03-30 16:06 | disposition home or self-care (01) | DRG 392 ==
LOC: ED 17:37 → SUATTDRO 21:48 → 2N 21:48